=== PATIENT | male | born 1980 | race Caucasian/White ===

== ENCOUNTER 2025-01-08 16:49 | Emergency (ER) | payer MEDICARE, MEDICAID, SELFPAY ==
--- NOTE | 2025-01-08 17:16 | ED.GENADULT ---
HPI - General Adult General Chief complaint: Extremity Problem Stated complaint: right foot swollen/red Related Data Previous Rx's ?Medication ?Instructions ?Recorded cephalexin 500 mg capsule 500 mg PO QID #28 caps 01/10/25 ibuprofen 600 mg tablet 600 mg PO Q8H PRN fever or pain 01/10/25 #30 tabs Allergies Allergy/AdvReac Type Severity Reaction Status Date / Time No Known Allergies Allergy Verified 01/09/25 22:51 PMFSH Social History Social History Advance Directives: No Advance Directives Information Provided: Yes Physical Exam ED Vital Signs: BMI result Body Mass Index 22.5 Course Course Course Narrative: This is a rapid medical exam performed by Faith Mckeon NP: Additional HPI, ROS, PE not included below will be deferred to primary provider. Patient is a 44-year-old male presenting to the ED with complaint of right foot redness and swelling for the past 4-5 days. Denies fevers/chills/body aches. Plan: labs Patient left the emergency department before myself or any of the other clinicians could review or explain physical exam findings, test results, need or lack there of for additional testing, treatment options, or a treatment plan. Medical Decision Making Lab Data 01/08/25 17:34 01/08/25 17:34 Labs: Lab Results 01/08/25 Range/Units 17:34 WBC 6.5 (4.8-10.8) X10*3/uL RBC 4.55 L (4.60-5.80) X10*6/uL Hgb 13.2 L (14.0-18.0) g/dl Hct 41.0 L (42.0-52.0) % MCV 90.1 (80.0-98.0) fL MCH 29.0 (27.0-33.0) pg MCHC 32.2 (31.0-36.0) g/dl RDW 13.0 (11.0-16.0) % Plt Count 254 (160-400) X10*3/uL MPV 9.3 L (9.4-12.4) fL Immature Gran % (Auto) 0.3 (0.0-0.4) % Neut % (Auto) 65.4 (45-73) % Lymph % (Auto) 26.1 (20-40) % Johnston % (Auto) 7.1 (2-11) % Eos % (Auto) 0.6 (0-4) % Baso % (Auto) 0.5 (0-2) % Lymph # (Auto) 1.7 (1.2-4.9) X10*3/uL Johnston # (Auto) 0.5 (0.1-1.2) X10*3/uL Eos # (Auto) 0.0 (0.0-0.4) X10*3/uL Baso # (Auto) 0.0 (0.0-0.2) X10*3/uL Abs Immat Gran (auto) 0.02 (0.00-0.03) X10*3/uL Absolute Neuts (auto) 4.2 (2.0-8.3) x10*3/uL Absolute Nucleated RBC 0.020 H (0.0-0.012) X10*3/uL Nucleated RBC % (auto) 0.3 H (0.0-0.2) /100WBC ESR 49 H (0-15) MM/HR Sodium 140 (135-145) mmol/L Potassium 4.5 (3.3-5.1) mmol/L Chloride 104 (96-108) mmol/L Carbon Dioxide 29 (22-29) mmol/L Anion Gap 12 (12-20) BUN 15 (9-16) mg/dL Creatinine 0.81 (0.5-1.4) mg/dL Estim Creat Clear Calc 132.0 Estimated GFR > 60 Random Glucose 113 (60-115) mg/dL Uric Acid 3.3 L (3.4-7.0) mg/dL Calcium 9.1 (8.4-10.2) mg/dL Total Bilirubin 0.5 (0.0-1.0) mg/dL AST 30 (5-37) U/L ALT 30 (0-40) U/L Alkaline Phosphatase 100 (39-117) U/L C-Reactive Protein 5.29 H (< or = 0.50) mg/dL Total Protein 7.9 (6.5-8.0) g/dL Albumin 3.7 (3.5-5.0) g/dL Discharge Plan Discharge Clinical Impression: Swelling of right foot Patient Disposition: Left W/O Completing Treatment Prescriptions: No Action ibuprofen 600 mg tablet 600 mg PO Q8H PRN (Reason: fever or pain) Qty: 30 0RF cephalexin 500 mg capsule 500 mg PO QID Qty: 28 0RF Discharge Date/Time: 01/08/25 20:01
[2025-01-08 17:17] VITALS: BP 136/77; PULSE 77; RESP 16; TEMP 36.9; O2SAT 97; BMI 22.5
[2025-01-08 18:00] LABS: MANUAL DIFF FLAG NO
[2025-01-08 18:01] LABS: Hematocrit 41.0 % (42.0-52.0); Hemoglobin 13.2 g/dl (14.0-18.0); Imm Gran Abs Auto 0.02 X10*3/uL (0.00-0.03); Imm Gran Pct Auto 0.3 % (0.0-0.4); Lymphocytes Absolute Auto 1.7 X10*3/uL (1.2-4.9); Mean Corpuscular HGB Conc 32.2 g/dl (31.0-36.0); Mean Corpuscular Hemoglobin 29.0 pg (27.0-33.0); Mean Corpuscular Volume 90.1 fL (80.0-98.0); NRBC Abs Auto 0.020 X10*3/uL (0.0-0.012); NRBC Pct Auto 0.3 /100WBC (0.0-0.2); Platelet Count 254 X10*3/uL (160-400); Red Blood Count 4.55 X10*6/uL (4.60-5.80); White Blood Count 6.5 X10*3/uL (4.8-10.8)
[2025-01-08 18:17] LABS: Alanine Aminotransferase 30 U/L (0-40); Albumin Level 3.7 g/dL (3.5-5.0); Alkaline Phosphatase 100 U/L (39-117); Anion Gap 12 (12-20); Aspartate Amino Transferase 30 U/L (5-37); Blood Urea Nitrogen 15 mg/dL (9-16); Calcium 9.1 mg/dL (8.4-10.2); Carbon Dioxide 29 mmol/L (22-29); Chloride 104 mmol/L (96-108); Creatinine Clr Calc Pharmacy 132.0; Estimated Glomerular Filt Rate > 60; Potassium 4.5 mmol/L (3.3-5.1); Sodium 140 mmol/L (135-145); Total Protein 7.9 g/dL (6.5-8.0); Uric Acid 3.3 mg/dL (3.4-7.0)
== END 2025-01-08 20:01 | disposition left against medical advice (07) ==
LOC: HO.ED 19:59
PROVIDERS: Registered Nurse Emergency; Emergency Provider Emergency Medicine
DX: M79.89 Other specified soft tissue disorders (principal)
CPT/HCPCS: 36415; 80053; 84550; 85025; 85652; 86140; 99281; 99283

== ENCOUNTER 2025-01-09 22:05 | Emergency (ER) | payer MEDICARE, MEDICAID, SELFPAY ==
--- NOTE | ~2025-01-09 | XR_ITS ---
CLINICAL HISTORY: Rule out retained foreign body 3 view right ankle Comparison: None provided Findings: Bones intact. No dislocations. Small posterior calcaneal enthesophyte at the site of the Achilles tendon insertion. No large ankle effusion. No radiopaque foreign body identified. IMPRESSION: 1. No acute fracture or dislocation injury identified at the right ankle. No radiopaque foreign body visualized. This document has been electronically signed by: Davon Vaca MD on 01/10/2025 02:38:24
[2025-01-09 22:46] VITALS: BP 159/89; PULSE 97; RESP 18; TEMP 37.2; O2SAT 95; BMI 21.7
--- NOTE | 2025-01-10 01:32 | ED_ITS ---
HPI - Extremity Problem General Chief complaint: Extremity Problem Stated complaint: right ankle red, swollen itchy Time Seen by Provider: 01/10/25 01:30 Source: patient Mode of arrival: ambulatory Limitations: no limitations History of Present Illness ED Provider: Rex MCLAUGHLIN HPI Narrative: The patient is a 44-year-old male presenting to the ED for evaluation of swelling, pain, tenderness, and erythema of the right ankle radiating to the right foot. The patient is an active IV drug user, however denies injecting into the affected area in the recent past. The patient denies associated fever/chills, nausea, vomiting, abdominal pain, chest pain, shortness of breath, pleurisy, hemoptysis, or other acute somatic complaint. Patient denies any recent travel or injury to the leg. The patient reports he a remote history of similar previous symptoms, which were effectively treated with antibiotics, does not recall the name of the antibiotic. Related Data Previous Rx's ?Medication ?Instructions ?Recorded cephalexin 500 mg capsule 500 mg PO QID #28 caps 01/10 ibuprofen 600 mg tablet 600 mg PO Q8H PRN fever or p ain 01/10/25 #30 tabs Allergies Allergy/AdvReac Type Severity Reaction Status Date / Time No Known Allergies Allergy Verified 01/09/25 22:51 Review of Systems 2 Review of Systems: Yes all other systems are reviewed and are negative PMFSH Social History Social History Advance Directives: No Advance Directives Information Provided: Yes Physical Exam 2 Vital Signs: Vital Signs: Last Vital Signs Temp 99.0 F 01/09/25 22:46 Pulse 97 01/09/25 22:46 Resp 18 01/09/25 22:46 BP 159/89 H 01/09/25 22:46 Pulse Ox 95 01/09/25 22:46 O2 Del Method Room Air 01/09/25 22:46 BMI result Body Mass Index 21.7 CONSTITUTIONAL: The patient appears unkempt but otherwise non-toxic, well nourished and in no acute distress. Vital signs as documented. HEAD: Atraumatic, normocephalic. EYES: EOMs grossly intact, pupils equal, conjunctiva clear, no exudate. ENT: Nares patent, no discharge. Airway patent, no audible stridor, visible mucosa is pink and moist without noted lesions. NECK: trachea is midline, no obvious masses or gross abnormalities. CHEST: Symmetric movement, normal appearance. LUNGS: Non-labored work of breathing. CARDIAC: No evidence of hypoperfusion. ABDOMEN: Nondistended, no obvious injury. : Deferred. EXTREMITIES: There is poorly demarcated erythema, warmth, tenderness and swelling noted to the medial and posterior aspect of the right foot and ankle, including the instep. Distal CSM is intact, 2+ DP/PT pulses. There is no calf tenderness or popliteal tenderness. No open injury. Bilateral upper extremities demonstrate multiple track ellington, no new appearing track ellington noted in the bilateral lower extremities. Moves all extremities spontaneously without reported pain. No other obvious injury or deformity noted. NEURO: Alert and oriented x3, CN II-XII appear grossly intact. Cerebellar Functioning grossly intact. Speech clear and appropriate. SKIN: Warm, dry, color appropriate. No other rashes or lesions noted. Medications Administered Discontinued Medications Generic Name Dose Route Start Last Admin Trade Name Freq PRN Reason Stop Dose Admin Cephalexin HCl 500 mg 01/10/25 02:00 01/10/25 02:33 Cephalexin 500 Mg Capsule PO 01/10/25 02:01 500 mg ONCE ONE Administration Ibuprofen 600 mg 01/10/25 02:00 01/10/25 02:33 Ibuprofen 600 Mg Tablet PO 01/10/25 02:01 600 mg ONCE ONE Administration Medical Decision Making Medical Decision Making MDM Narrative: 2:07 AM 01/10/2025 (Nette MCLAUGHLIN): The patient is a 44-year-old male presenting to the ED for evaluation of medial and posterior right ankle and foot erythema with swelling, tenderness, and warmth. The patient reports history of IVDA but denies injection into this area recently. The patient's exam is consistent with cellulitis, there is no calf tenderness or popliteal tenderness, no recent trauma or travel, findings not consistent with DVT. The patient presenting to the ED for evaluation yesterday but left without being seen, laboratory obtained at that time showed no leukocytosis but moderately elevated ESR and CRP. The patient was initially ordered for IV fluid hydration, ankle x-ray, repeat laboratory workup, and blood cultures. The patient is refusing fluid hydration and blood cultures, patient was agreeable to x-ray and repeat labs. Patient reports he prefers to trial p.o. antibiotics and outpatient follow up. At this time patient's exam shows no evidence of septic arthritis, necrotic tissue, or other deep space infection. The patient will be evaluated with repeat labs, ankle x-ray, and we will trial p.o. cephalexin. 2:52 AM 01/10/2025 (Nette MCLAUGHLIN): Patient's laboratory evaluation is reassuring, no acute change from previous, x-ray confirms no foreign body or injury. The patient will be discharged with p.o. cephalexin, patient has been educated on reasons to return to the ED for re-evaluation and additional intervention. Admission/Observation Consideration of admission/observation: Escalation of care including admission/observation considered Lab Data MDM Lab Attestation statement: I reviewed the patient's lab results. 01/10/25 02:16 01/10/25 02:16 Labs: Lab Results 01/10/25 Range/Units 02:16 WBC 6.7 (4.8-10.8) X10*3/uL RBC 4.53 L (4.60-5.80) X10*6/uL Hgb 13.1 L (14.0-18.0) g/dl Hct 38.9 L (42.0-52.0) % MCV 85.9 (80.0-98.0) fL MCH 28.9 (27.0-33.0) pg MCHC 33.7 (31.0-36.0) g/dl RDW 12.7 (11.0-16.0) % Plt Count 266 (160-400) X10*3/uL MPV 8.4 L (9.4-12.4) fL Absolute Nucleated RBC 0.000 (0.0-0.012) X10*3/uL Nucleated RBC % (auto) 0.0 (0.0-0.2) /100WBC Sodium 141 (135-145) mmol/L Potassium 3.9 (3.3-5.1) mmol/L Chloride 104 (96-108) mmol/L Carbon Dioxide 29 (22-29) mmol/L Anion Gap 12 (12-20) BUN 21 H (9-16) mg/dL Creatinine 0.94 (0.5-1.4) mg/dL Estim Creat Clear Calc 109.9 Estimated GFR > 60 Random Glucose 100 (60-115) mg/dL Lactic Acid 1.2 (0.5-2.0) mmol/L Calcium 8.9 (8.4-10.2) mg/dL Total Bilirubin 0.3 (0.0-1.0) mg/dL AST 26 (5-37) U/L ALT 25 (0-40) U/L Alkaline Phosphatase 100 (39-117) U/L Total Protein 7.7 (6.5-8.0) g/dL Albumin 3.6 (3.5-5.0) g/dL Radiology Impression Discussion of test interpretation with radiology: I have reviewed the radiologist's reading. Radiologist Impression: CLINICAL HISTORY: Rule out retained foreign body 3 view right ankle Comparison: None provided Findings: Bones intact. No dislocations. Small posterior calcaneal enthesophyte at the site of the Achilles tendon insertion. No large ankle effusion. No radiopaque foreign body identified. IMPRESSION: 1. No acute fracture or dislocation injury identified at the right ankle. No radiopaque foreign body visualized. This document has been electronically signed by: Davon Vaca MD on 01/10/2025 02:38:24 External Record Review External record reviewed: Outpatient record Prescription Management I considered prescription management with: Pain Medication and Antibiotic Discharge Plan Discharge Clinical Impression: Cellulitis Qualifiers: Site of cellulitis: extremity Site of cellulitis of extremity: lower extremity Laterality: right Qualified Code(s): L03.115 - Cellulitis of right lower limb Patient Disposition: Home, Self-Care Instructions: Cellulitis (ED) Additional Instructions: Thank you for choosing [facility]'s Emergency Department for your care today. Thankfully your laboratory evaluation today is reassuring. At this time there is no indication for admission to the hospital or continued ED observation, and it is safe to discharge you home. Your symptoms today appear consistent with cellulitis, infection of your skin. The exact cause of your cellulitis is not entirely clear, however thankfully your x-ray shows no evidence of a foreign body and your exam and x-ray show no findings concerning for possible deep space infections. We are treating your cellulitis with cephalexin, please take this as prescribed until it is finished. You may take alternating (staggered) doses of ibuprofen 600mg and Tylenol 1000mg every 4 hours as needed for any additional pain. Please rest the injured area, and apply ice for 20 minutes every hour. Please stay well hydrated and get plenty of rest. Please follow up with your primary care physician for re-evaluation, additional management of your symptoms, and continued preventative care. If you do not have a primary care physician, please call the [facility] at [phone] to establish a new primary care physician. While waiting to establish your new primary care physician, you can call our [facility] at [phone] for non-emergency needs. Please return to the emergency department if you develop a severe or sudden change in your symptoms, a fever over 100.4 that does not improve with Tylenol or Ibuprofen, recurrent vomiting, or any other new or worsening symptoms or concerns. Prescriptions: New ibuprofen 600 mg tablet 600 mg PO Q8H PRN (Reason: fever or pain) Qty: 30 0RF cephalexin 500 mg capsule 500 mg PO QID Qty: 28 0RF Referrals: Physician,Unknown J [Primary Care Provider, Medical] Clinical Impression: Cellulitis Print Language: Swedish
[2025-01-10 02:22] LABS: Hematocrit 38.9 % (42.0-52.0); Hemoglobin 13.1 g/dl (14.0-18.0); Mean Corpuscular HGB Conc 33.7 g/dl (31.0-36.0); Mean Corpuscular Hemoglobin 28.9 pg (27.0-33.0); Mean Corpuscular Volume 85.9 fL (80.0-98.0); NRBC Abs Auto 0.000 X10*3/uL (0.0-0.012); NRBC Pct Auto 0.0 /100WBC (0.0-0.2); Platelet Count 266 X10*3/uL (160-400); Red Blood Count 4.53 X10*6/uL (4.60-5.80); White Blood Count 6.7 X10*3/uL (4.8-10.8)
[2025-01-10 02:38] LABS: Alanine Aminotransferase 25 U/L (0-40); Albumin Level 3.6 g/dL (3.5-5.0); Alkaline Phosphatase 100 U/L (39-117); Anion Gap 12 (12-20); Aspartate Amino Transferase 26 U/L (5-37); Blood Urea Nitrogen 21 mg/dL (9-16); Calcium 8.9 mg/dL (8.4-10.2); Carbon Dioxide 29 mmol/L (22-29); Chloride 104 mmol/L (96-108); Creatinine Clr Calc Pharmacy 109.9; Estimated Glomerular Filt Rate > 60; Potassium 3.9 mmol/L (3.3-5.1); Sodium 141 mmol/L (135-145); Total Protein 7.7 g/dL (6.5-8.0)
[2025-01-10 02:57] VITALS: BP 123/73; PULSE 74; RESP 16; TEMP 37.2; O2SAT 96
[2025-01-10 02:59] VITALS: BP 123/73; PULSE 74; RESP 16; TEMP 37.2; O2SAT 96
== END 2025-01-10 03:00 | disposition home or self-care (01) ==
PROVIDERS: Physician Assistant; Emergency Provider Emergency Medicine
DX: L03.115 Cellulitis of right lower limb (principal); M25.571 Pain in right ankle and joints of right foot
CPT/HCPCS: 36415; 73610; 80053; 83605; 85027; 99283; 99284

== ENCOUNTER → 2025-01-10 01:32 | Outpatient (BNV) | payer MEDICARE, MEDICAID, SELFPAY | PROVIDERS: Emergency Provider Emergency Medicine; Visit Provider Radiology Diagnostic Radiology | DX: M77.51 Other enthesopathy of right foot and ankle (principal) | CPT/HCPCS: 73610 ==

== ENCOUNTER 2025-04-11 17:05 | Emergency (ER) | payer MEDICARE, SELFPAY ==
--- NOTE | 2025-04-11 17:30 | ED.GENADULT ---
HPI - General Adult General Chief complaint: Dental/Oral Stated complaint: broken toothright lower jaw/swollen w/fever Time Seen by Provider: 04/11/25 21:21 Source: patient Mode of arrival: ambulatory Limitations: no limitations History of Present Illness ED Provider: Dr. Cori Queen HPI narrative: Patient comes to the emergency room complaining of dental pain and abscess. Patient states that about 3 weeks ago, patient cracked a tooth on the right mandibular side. Patient states that the pain has been variable. However, this morning when patient woke up, there was significant swelling and pain. Patient admits sheree he has opiate dependence. Patient reported in triage subjective fevers at home. Related Data Previous Rx's ?Medication ?Instructions ?Recorded cephalexin 500 mg capsule 500 mg PO QID #28 caps 01/10/25 ibuprofen 600 mg tablet 600 mg PO Q8H PRN fever or pain 01/10/25 #30 tabs chlorhexidine gluconate 0.12 % 15 ml buccal BID #473 mL 04/11/25 mouthwash ketorolac 10 mg tablet 10 mg PO Q8H PRN pain #10 tabs 04/11/25 oxycodone 5 mg tablet 5 mg PO TID PRN pain #8 tabs 04/11/25 penicillin V potassium 500 mg 500 mg PO TID #30 tabs 04/11/25 tablet Allergies Allergy/AdvReac Type Severity Reaction Status Date / Time No Known Allergies Allergy Verified 04/11/25 17:33 Review of Systems Review of Systems: Constitutional : No Weight loss, No Fever, No Chills, No Night Sweats, No Fatigue, No Malaise ENT/Mouth : No Hearing loss, No Ear Pain, No Nasal Congestion, No Sinus Pain, No Hoarseness, No sore throat, No Rhinorrhea, No Swallowing Difficulty Eyes: No Eye Pain, No Swelling, No Redness, No Foreign Body, No Discharge, No Vision Changes Cardiovascular : No Chest Pain, No SOB, No Dyspnea on Exertion, No Orthopnea, No Edema, No Palpitations Respiratory : No Cough, No Sputum, No Wheezing, No Smoke Exposure, No Dyspnea Gastrointestinal : No Nausea, No Vomiting, No Diarrhea, No Constipation, No abdominal Pain, No Hematochezia, No Melena Genitourinary : no irregular bleeding, No Dysuria, No Urinary Frequency, No Hematuria, No Urinary Incontinence, No Urgency, No Flank Pain, No Urinary Flow Changes, No Hesitancy Musculoskeletal : No joint pain, No Myalgias, No Joint Swelling Skin : No Skin Lesions, No rash Neuro : No Weakness, No Numbness, No Paresthesias, No Loss of Consciousness, No Dizziness, No Headache Psych : No Anxiety/Panic, No Depression, No SI/HI/AH/VH, No Social Issues, Heme/Lymph: No Bruising, No Bleeding,No Lymphadenopathy Endocrine : No Polyuria, No Polydipsia, No Temperature Intolerance [facility] Social History Social History Advance Directives: No Advance Directives Information Provided: Yes Physical Exam ED Exam Exam: Appearance: Alert. Oriented X3. No acute distress. Eyes: Pupils equal, round and reactive to light. ENT: Pharynx normal. Patient has a large abscess in the right mandibular side. Neck: Normal inspection. Neck supple. No lymph nodes noted. No crepitus CVS: Normal heart rate and rhythm. Pulses normal. Normal S1 and S2 Respiratory: No respiratory distress. Breath sounds normal. No Wheezing. No rales Abdomen: Soft and nontender. No rigidity. No distention. Skin: Skin warm and dry. Normal skin color. Normal skin turgor. Extremities: No lower extremity edema. No Lacerations. No Rash Neuro: Oriented X 3. No motor deficit. No sensory deficit. Moving all extremities. No slurred speech. CN 2 through 12 grossly intact Psych: calm, cooperative, normal affect Vital Signs: Vital Signs - 24 hr 04/11/25 17:32 Temperature 98.6 F Pulse Rate 89 Respiratory Rate 18 Blood Pressure 132/67 Pulse Oximetry 97 Oxygen Delivery Method Room Air BMI result Body Mass Index 21.2 Course Course Course Narrative: Medical screening exam performed. Please refer to detailed history, exam, evaluation, and management by primary provider. Right lower broken dentition with several days facial swelling, most notably today. Subjective fevers. History of polysubstance use, last use this morning. JS Medications Administered Discontinued Medications Generic Name Dose Route Start Last Admin Trade Name Freq PRN Reason Stop Dose Admin Bupivacaine HCl/Epinephrine Bitart 1.8 ml 04/11/25 21:30 04/11/25 21:44 Bupivacaine 0.5 % W/Epi Dental 1.8 Ml Cartridge INFILTRATI 04/11/25 21:31 1.8 ml ONCE ONE Administration Ketorolac Tromethamine 60 mg 04/11/25 21:26 04/11/25 21:44 Ketorolac Tromethamine 60 Mg/2 Ml Vial IM 04/11/25 21:27 60 mg ONCE ONE Administration Oxycodone HCl 10 mg 04/11/25 21:50 04/11/25 22:27 Oxycodone Hcl Immed Release 5 Mg Tablet PO 04/11/25 21:51 10 mg ONCE ONE Administration Penicillin V Potassium 500 mg 04/11/25 21:26 04/11/25 21:45 Penicillin V Potassium 250 Mg Tablet PO 04/11/25 21:27 500 mg ONCE ONE Administration Procedures Abscess I/D Site: oral Side (if applicable): right Local Anesthetic: bupivacaine 0.5% Amount of anesthesia used (mL): 1.5 Technique: needle aspiration Amount of fluid expressed (mL): 5 Packing used?: none Medical Decision Making Medical Decision Making [facility] Narrative: I discussed with the patient that I recommend draining the abscess, giving him pain medications and antibiotics. Patient agrees with plan. An inferior alveolar block was applied. Using 1.5 mL of bupivacaine Patient had good anesthetic effects, 5 mL of pus was drained Swelling significantly decreased, patient feeling much better. Patient does have a dentist, we will give him a call on Sunday to schedule an appointment. First dose of p.o. penicillin was given in the emergency room. Differential Diagnosis Differential Diagnoses: The differential diagnosis associated with the presentation includes (Dental abscess, gingivitis, cavities) Lab Data [facility] Lab Attestation statement: I reviewed the patient's lab results. 04/11/25 18:54 04/11/25 18:54 Labs: Lab Results 04/11/25 Range/Units 18:54 WBC 7.5 (4.8-10.8) X10*3/uL RBC 5.14 (4.60-5.80) X10*6/uL Hgb 14.2 (14.0-18.0) g/dl Hct 44.6 (42.0-52.0) % MCV 86.8 (80.0-98.0) fL MCH 27.6 (27.0-33.0) pg MCHC 31.8 (31.0-36.0) g/dl RDW 13.3 (11.0-16.0) % Plt Count 326 (160-400) X10*3/uL MPV 9.3 L (9.4-12.4) fL Immature Gran % (Auto) 0.3 (0.0-0.4) % Neut % (Auto) 63.0 (45-73) % Lymph % (Auto) 26.4 (20-40) % Jefferson % (Auto) 6.6 (2-11) % Eos % (Auto) 3.3 (0-4) % Baso % (Auto) 0.4 (0-2) % Lymph # (Auto) 2.0 (1.2-4.9) X10*3/uL Jefferson # (Auto) 0.5 (0.1-1.2) X10*3/uL Eos # (Auto) 0.3 (0.0-0.4) X10*3/uL Baso # (Auto) 0.0 (0.0-0.2) X10*3/uL Abs Immat Gran (auto) 0.02 (0.00-0.03) X10*3/uL Absolute Neuts (auto) 4.7 (2.0-8.3) x10*3/uL Absolute Nucleated RBC 0.000 (0.0-0.012) X10*3/uL Nucleated RBC % (auto) 0.0 (0.0-0.2) /100WBC Smear Tech's Comments VERIFIED Sodium 139 (135-145) mmol/L Potassium 4.6 (3.3-5.1) mmol/L Chloride 104 (96-108) mmol/L Carbon Dioxide 24 (22-29) mmol/L Anion Gap 16 (12-20) BUN 20 H (9-16) mg/dL Creatinine 0.83 (0.5-1.4) mg/dL Estim Creat Clear Calc 120.1 Estimated GFR > 60 Random Glucose 95 (60-115) mg/dL Lactic Acid 1.2 (0.5-2.0) mmol/L Calcium 9.6 D (8.4-10.2) mg/dL Discharge Plan Discharge Clinical Impression: Dental abscess Patient Disposition: Home, Self-Care Instructions: Dental Abscess (ED) Additional Instructions: Please follow-up with your primary care physician tomorrow. If you have any worsening or new symptoms, please return to the emergency room or call 911 Prescriptions: New penicillin V potassium 500 mg tablet 500 mg PO TID Qty: 30 0RF ketorolac 10 mg tablet 10 mg PO Q8H PRN (Reason: pain) Qty: 10 0RF Rx Instructions: Do not use this medication with ibuprofen or any other NSAIDs. oxycodone 5 mg tablet 5 mg PO TID PRN (Reason: pain) Qty: 8 0RF Rx Instructions: Partial Fill upon patient request. chlorhexidine gluconate 0.12 % mouthwash 15 ml buccal BID Qty: 473 0RF No Action ibuprofen 600 mg tablet 600 mg PO Q8H PRN (Reason: fever or pain) Qty: 30 0RF cephalexin 500 mg capsule 500 mg PO QID Qty: 28 0RF Interventions: ED Discharge Assessment Last Done: 04/11/25 22:29 Discharge Date/Time: 04/11/25 22:33 Print Language: Telugu
[2025-04-11 17:32] VITALS: BP 132/67; PULSE 89; RESP 18; TEMP 37; O2SAT 97; BMI 21.2
[2025-04-11 19:16] LABS: Anion Gap 16 (12-20); Blood Urea Nitrogen 20 mg/dL (9-16); Calcium 9.6 mg/dL (8.4-10.2); Carbon Dioxide 24 mmol/L (22-29); Chloride 104 mmol/L (96-108); Creatinine Clr Calc Pharmacy 120.1; Estimated Glomerular Filt Rate > 60; Potassium 4.6 mmol/L (3.3-5.1); Sodium 139 mmol/L (135-145)
[2025-04-11 20:16] LABS: Hemoglobin 14.2 g/dl (14.0-18.0); NRBC Abs Auto 0.000 X10*3/uL (0.0-0.012); NRBC Pct Auto 0.0 /100WBC (0.0-0.2); PLT CLUMP 1; SCAN SMEAR FLAG 1
[2025-04-11 20:19] LABS: Hematocrit 44.6 % (42.0-52.0); Imm Gran Abs Auto 0.02 X10*3/uL (0.00-0.03); Imm Gran Pct Auto 0.3 % (0.0-0.4); Lymphocytes Absolute Auto 2.0 X10*3/uL (1.2-4.9); MANUAL DIFF FLAG SCAN; Mean Corpuscular HGB Conc 31.8 g/dl (31.0-36.0); Mean Corpuscular Hemoglobin 27.6 pg (27.0-33.0); Mean Corpuscular Volume 86.8 fL (80.0-98.0); Red Blood Count 5.14 X10*6/uL (4.60-5.80)
[2025-04-11 20:51] LABS: Platelet Count 326 X10*3/uL (160-400); White Blood Count 7.5 X10*3/uL (4.8-10.8)
[2025-04-11] MEDS: EPINEPHRINE INFILTRATI (21:44)
[2025-04-11] MEDS: BUPIVACAINE 0.5% INFILTRATI (21:44)
[2025-04-11 22:29] VITALS: BP 132/67; PULSE 89; RESP 18; TEMP 37; O2SAT 97
== END 2025-04-11 22:33 | disposition home or self-care (01) ==
PROVIDERS: Physician Assistant; Emergency Provider Emergency Medicine; PCP Family Medicine
DX: K04.7 Periapical abscess without sinus (principal)
CPT/HCPCS: 36415; 41800; 80048; 83605; 85025; 87040; 96372; 99283; 99284; J1885